=== PATIENT | male | born 1955 | race Caucasian/White ===

== ENCOUNTER 2017-05-29 22:46 | Emergency (ER) | payer SELFPAY ==
[~2017-05-29] VITALS: Ht 175.3 cm; Wt 104.3 kg
--- NOTE | 2017-05-29 22:59 | PHYS DOC ---
Past History Past Medical History: Diabetes, High Cholesterol, Hypertension Past Surgical History: Other Additional Past Surgical Histo: patient is a 26 surgeries on his left leg mostly orthopedic Alcohol Use: Occasionally Drug Use: None Adult General Chief Complaint Chief Complaint: HIP PAIN [facility] HPI He is a pleasant 61-year-old male with history of hypertension hyperlipidemia and question will diabetes who presents with a dislocated left hip. 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 Tonight he meal with his family and was moving around in his hotel room when he twisted sitting on the bed and he felt it come out of place. There is no numbness and tingling just pain with decreased range of motion at the hip. This injury occurred partially 2 hours prior to arrival at this point patient has no knee pain, no back pain or other complaints. Pain is moderate in nature worse with range of motion or decreased range of motion at this point. Patient's last meal consisted brisk and a salad about 2 hours prior to arrival Review of Systems Review of Systems Constitutional: Denies fever or chills [] Eyes: Denies change in visual acuity, redness, or eye pain [] HENT: Denies nasal congestion or sore throat [] Respiratory: Denies cough or shortness of breath [] Cardiovascular: No additional information not addressed in HPI [] GI: Denies abdominal pain, nausea, vomiting, bloody stools or diarrhea [] : Denies dysuria or hematuria [] Musculoskeletal: His only complaint is left hip pain Integument: Denies rash or skin lesions [] Neurologic: Denies headache, focal weakness or sensory changes [] Allergies Allergies Allergies Coded Allergies Type Severity Reaction Last Updated Verified Penicillins Allergy Unknown 05/29/17 Yes vancomycin Allergy Unknown 05/29/17 Yes Physical Exam Physical Exam Constitutional: Well developed, well nourished, no acute distress, non-toxic appearance. [] HENT: Normocephalic, atraumatic, bilateral external ears normal, oropharynx moist, no oral exudates, nose normal. MallamPati score of 3[] Eyes: PERRLA, EOMI, conjunctiva normal, no discharge. [] Cardiovascular:Heart rate regular rhythm, no murmur [] Lungs & Thorax: Bilateral breath sounds clear to auscultation [] Extremities: He has decreased range of motion in the left hip patient's hip is mildly internally rotated. Neurologic: Alert and oriented X 3, normal motor function, normal sensory function, no focal deficits noted. [] Psychologic: Affect normal, judgement normal, mood normal. [] EKG EKG [] Radiology/Procedures Radiology/Procedures [] Course & Med Decision Making Course & Med Decision Making Pertinent Labs and Imaging studies reviewed. (See chart for details) patient arrived with anterior dislocation of the left hip. Patient has a prosthetic hip that began out of joint 3 times last several months. He is ready alert at his orthopedic surgeon back in [place] need for replacement. Patient has no neurologic deficits, patient's pain is localized in the hip. Patient had procedure sedation using propofol and fentanyl while on monitoring and RT at bedside. Patient had 1 mg/kg IV push over 5 minutes of propofol and 50 fentanyl no without issue. Patient tolerated procedure well hip was reduced with first attempt. Patient's post reduction exam demonstrates hip that is still out of place despite manual reduction. A second attempt at reduction was done at approximately 12am using fentanyl and 100 mg of IV propofol without issue. Patient clearly had reduction of the joint. On secondary manipulation with x-ray verification hip became dislodged again. It is clear that this hip joint is unstable. Patient has had it really placed back in February 2017 and had 2 revisions of this joint already and is clear despite sedation and manual reduction that this will not stay in joint. It is been decided only to be transferred to [facility] for manual reduction the OR via general anesthesia and fluoroscopy-guided reduction. Is patient will be admitted to the hospital service. Tilting Saw Operator note: Internal medicine guest services assistant called at of the service 12:24 AM Consult called back at 1227 Discussed the case I presented and they agreed with admission. Time of [id number] Tilting Saw Operator note: Dr. Trevino Tilting Saw Operator called at of the service 08.12 Consult called back at1. Discussed the case I presented and they agreed with admission. He will seem as senior information security consultant. This point patient will be treated with pain management IV fluids keep nothing by mouth and ordered to go to the OR in the morning. Dragon Disclaimer Dragon Disclaimer This chart was dictated in whole or in part using Voice Recognition software in a busy, high-work load, and often noisy Emergency Department environment. It may contain unintended and wholly unrecognized errors or omissions. Departure Departure: Impression: Primary Impression: Hip dislocation, left Disposition: 02 XFER SHT-TRM HOSP Condition: GUARDED Procedural Sedation Proc Sed Indication: Left hip dislocation reduction[] Consent: Written and verbal consent given patient had complications and side effects discussed, procedural sedation guidelines were given as well as her plan.[] Physician Involvement: The attending physician was present and supervising this procedure. Pre-Sedation Documentation and Exam: Patient is an ASA class patient to see above physical exam findings with a Mallapati score 3, no neck bubbling issues, no fake teeth.[] Airway Assessment: Clear without issues. [] Prior History of Anesthesia Complications: No. Allergies only to penicillins and tachycardia myosin.[] ASA Classification: #2[] Sedation/ Anesthesia Plan: She will be given fentanyl as an analgesic and propofol for sedation. We utilize 1 mg/mg IV push were going to give 20 mg/m over 5 minutes and we are going to re-dose at 0.5 mg/mg every 5 minutes for sedation if required. [] Medications Used: Fentanyl and propofol[] Monitoring and Safety: The patient was placed on a timber bucker and vital signs, pulse oximetry and level of consciousness were continuously evaluated throughout the procedure. The patient was closely monitored until recovery from the medications was complete and the patient had returned to baseline status. Respiratory therapy was on standby at all times during the procedure. (The following sections must be completed) Post-Sedation Vital Signs: [EDM.VS] oxygen saturation rate 94 respiratory rate 12 look pressure 143/82 Post-Sedation Exam: During the procedure we could feel a solid clunk and replacement of the joint OB verified by x-ray. Unfortunately during post- sedation x-ray validation patient's joint became dislodged again.[] Complications: noted patient sedation resolved after approximately 5 minutes. Patient protected his own airway with no complications[] CLIFFORD PARNELL MD May 29, 2017 22:59
[2017-05-29] MEDS ORDERED: PROPOFOL 20 ML IV ONE (23:00)
[2017-05-30] MEDS ORDERED: PROPOFOL 20 ML IV ONE (00:15)
[2017-05-30 01:09] VITALS: BP 130/73
[2017-05-30] MEDS ORDERED: HYDROmorphone PF 1 MG/ML DISP.SYRIN IV ONE ×2 (01:30)
--- NOTE | 2017-05-30 08:24 | RAD ---
AP view of the pelvis and two-view study of the left hip History: Left hip pain. Dislocation. Findings: There is superior lateral anterior dislocation of the left femoral head prosthesis from the acetabular prosthesis. No acute fracture is evident. No osteolytic process is seen. Heterotopic soft tissue ossification is seen around the left hip joint. 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 IMPRESSION: Dislocation of the left hip prosthesis. No acute fracture is seen.
--- NOTE | 2017-06-04 13:34 | RAD ---
Two-view left hip study History: Post reduction. IMPRESSION: Persistent anterior dislocation of the femoral head prosthesis from the acetabular prosthesis is seen. IMPRESSION: Persistent dislocation of the left hip prosthesis.. MTDD
== END 2017-05-30 01:25 | disposition short-term general hospital (02) ==
LOC: ER 22:46
DX: S73.005A Unspecified dislocation of left hip, initial encounter (principal); E11.9 Type 2 diabetes mellitus without complications; E78.00 Pure hypercholesterolemia, unspecified; I10 Essential (primary) hypertension; Z88.0 Allergy status to penicillin; Z88.1 Allergy status to other antibiotic agents; X50.1XXA Overexertion from prolonged static or awkward postures, initial encounter; Y93.89 Activity, other specified; Y99.8 Other external cause status; Y92.59 Other trade areas as the place of occurrence of the external cause
CPT/HCPCS: 27265; 73502; 96374; 99285; J1170; J2704; J3010; 99152